=== PATIENT | male | born 1970 | race Caucasian/White ===

== ENCOUNTER 2020-09-27 16:18 | Emergency (ER) | payer BC, OTHER ==
[~2020-09-27] VITALS: Ht 177.8 cm; Wt 63.5 kg
--- NOTE | 2020-09-27 16:35 | NUR ---
pt stated he felt "dizzy, lightheaded, tingling in his feet". pt also stated he took a Xanax. per pt, "now that I think about it, it might just be anxiety. I feel silly". VSS. Denies chest pain.
--- NOTE | 2020-09-27 16:41 | NUR ---
MD at bedside to assess patient
--- NOTE | 2020-09-27 17:01 | NUR ---
EKG completed. GILBERTRBambi linares for discharge per MD. pt ambulatory and left after goinh over discharge instructions
[2020-09-27 17:04] VITALS: BP 154/90
== END 2020-09-27 17:07 | disposition home or self-care (01) ==
LOC: ER 16:18
DX: F41.0 Panic disorder [episodic paroxysmal anxiety] (principal)
CPT/HCPCS: 93005; A4663